=== PATIENT | male | born 1990 | race African-American/Black ===

== ENCOUNTER 2020-08-09 12:21 | Emergency (ER) | payer OTHER ==
[~2020-08-09] VITALS: Ht 165.1 cm; Wt 52.2 kg
[~2020-08-09 12:21] MED LIST: ALBUTEROL SUL5 MG/M1 IH; NOHOMEMEDICATIONS; PREDNISONE50 MG PO; VENTOLIN HFA 1818 GM INH
[2020-08-09] MEDS ORDERED: PREDNISONE 20 M20 MG PO (14:24)
[2020-08-09 15:10] VITALS: BP 137/79
== END 2020-08-09 15:12 | disposition home or self-care (01) ==
LOC: ER 12:21
DX: J45.901 Unspecified asthma with (acute) exacerbation (principal); Z20.828 Contact with and (suspected) exposure to other viral communicable diseases; Z79.899 Other long term (current) drug therapy

== ENCOUNTER 2020-12-12 22:56 | Emergency (ER) | payer OTHER ==
[~2020-12-12] VITALS: Ht 165.1 cm; Wt 54.4 kg
[~2020-12-12 22:56] MED LIST changes: +PREDNISONE 20 M20 MG PO
[2020-12-12 23:22] LABS: URINE BILIRUBIN NEGATIVE (Negative); URINE BLOOD NEGATIVE (Negative); URINE CLARITY CLEAR; URINE COLOR YELLOW; URINE GLUCOSE-RANDOM* NEGATIVE (Negative); URINE KETONES NEGATIVE (Negative); URINE LEUKOCYTES-REFLEX TRACE (Negative); URINE NITRITE-REFLEX NEGATIVE (Negative); URINE PROTEIN (DIPSTICK) NEGATIVE (Negative); URINE SPECIFIC GRAVITY 1.025 (1.005-1.035)
[2020-12-13] MEDS ORDERED: DOXYCYCLINE 10100 MG PO (00:32)
[2020-12-13 01:32] VITALS: BP 130/78
[2020-12-14 18:06] LABS: HSV 2 IgG <0.91 index (0.00-0.90)
== END 2020-12-13 01:34 | disposition home or self-care (01) ==
LOC: ER 22:56
PROVIDERS: Emergency Medicine
DX: Z20.2 Contact with and (suspected) exposure to infections with a predominantly sexual mode of transmission (principal); J45.909 Unspecified asthma, uncomplicated; Z79.899 Other long term (current) drug therapy